=== PATIENT | male | born 1975 ===

== ENCOUNTER 2017-06-25 22:53 | Emergency (ER) | payer SELFPAY ==
[2017-06-25 22:56] VITALS: BP 153/97; PULSE 119; RESP 16; TEMP 98.2; O2SAT 100
[2017-06-25] MEDS ORDERED: Lidocaine 1% Inj (20ml) IJ STA (23:26)
--- NOTE | 2017-06-25 23:31 | ED PDOC ---
HPI: General Adult Time Seen by Provider: 06/25/17 23:11 Chief Complaint (Nursing): Abnormal Skin Integrity History Per: Patient Additional Complaint(s): Pt. states 30 mins [employer] a machete accidentally fell on his R wrist causing a laceration. Denies numbness, tingling, other injury. Admits to drinking alcohol tonight. Past Medical History Reviewed: Historical Data, Nursing Documentation, Vital Signs Vital Signs: Last Vital Signs Temp 98.2 F 06/25/17 22:54 Pulse 119 H 06/25/17 22:54 Resp 16 06/25/17 22:54 BP 153/97 H 06/25/17 22:54 Pulse Ox 100 06/26/17 03:15 - Family History Family History: States: No Known Family Hx - Immunization History Hx Tetanus Toxoid Vaccination: Yes ("3 years ago") - Allergies Allergies/Adverse Reactions: Allergies Allergy/AdvReac Type Severity Reaction Status Date / Time No Known Allergies Allergy Verified 06/25/17 22:54 Review of Systems ROS Statement: Except As Marked, All Systems Reviewed And Found Negative Physical Exam - Physical Exam Appears: Positive for: Well, Non-toxic, No Acute Distress Head Exam: Positive for: ATRAUMATIC, NORMAL INSPECTION, NORMOCEPHALIC Skin: Positive for: Normal Color, Warm. Negative for: Rash Eye Exam: Positive for: Normal appearance Pulses-Radial (L): 2+ Pulses-Radial (R): 2+ Extremity: Positive for: Normal ROM (actively of R wrist and all fingers on R hand), Capillary Refill (< 2 seconds of finger on R hand), Other (R wrist with 3 inch superficial on volar surface extending to dorsal surface without active bleeding or deep structure visualized) Neurologic/Psych: Positive for: Alert, Oriented, Gait (steady unassisted), Other (no slurred speech) - ECG O2 Sat by Pulse Oximetry: 100 - Progress ED Course And Treament: Repeat HR: 120 as per RN. Pt. denies chest pain, SOB, palpitations. Informed that EKG will be needed to evaluate tachycardia. EKG ordered. 0120 Pt. not found in room. Pt. did not get EKG done. Left before treatment complete. Procedures - Time-Out Type of Procedure: Laceration repair Site of Procedure: R wrist Correct Patient (with visual ID + MR# on ID Band): Yes Correct Procedure: Yes Correct Site Marked: Yes PA/Tech: Chas[place] - Splinting Pre-Made Type: velcro Splint: volar Pre-Proc Neuro Vasc Exam: normal Post-Proc Neuro Vasc Exam: normal - Laceration/Wound Repair Laceration repair Wound Length (cm): 7.5 Wound's Depth, Shape: superficial, linear Wound Explored: clean Irrigated w/ Saline (ccs): 500 Betadine Prep?: Yes Anesthesia: 1% Lidocaine Volume Anesthetic (ccs): 4 Wound Repaired With: Sutures Suture Size/Type: 4:0, proline Number of Sutures: 9 Layer Closure?: No Wound Complexity: Intermediate Sterile Dressing Applied?: Yes Splint Applied?: Yes Progress: 3 vertical mattress sutures 6 simple interrupted sutures Disposition - Clinical Impression Clinical Impression: Wrist laceration, Tachycardia - Patient ED Disposition Is Patient to be Admitted: No - Disposition Disposition: Eloped Disposition Time: 01:20 Condition: UNKNOWN Print Language: KOSOVAN
[2017-06-25] MEDS ORDERED: Lidocaine 1% Inj (20ml) ONE (23:35)
[2017-06-25] MEDS ORDERED: Povidone Iodine Oint 10% Foilpak UD ONE (23:37)
== END 2017-06-26 01:33 | disposition left against medical advice (07) ==
LOC: H.ER 22:53
DX: S61.512A Laceration without foreign body of left wrist, initial encounter (principal); W26.0XXA Contact with knife, initial encounter; Y92.89 Other specified places as the place of occurrence of the external cause; R00.0 Tachycardia, unspecified

== ENCOUNTER 2017-07-11 13:15 | Emergency (ER) | payer OTHER ==
[2017-07-11 13:23] VITALS: BP 124/70; PULSE 70; RESP 20; TEMP 98; O2SAT 98
--- NOTE | 2017-07-11 13:38 | ED PDOC ---
HPI: Wound Care - HPI Time Seen by Provider: 07/11/17 13:23 Chief Complaint (Nursing): Suture/Staple Removal Chief Complaint (Provider): suture/staple removal History Per: Patient Exam Limitations: no limitations Onset/Duration Of Symptoms: Days (06/24/17) Location Of Injury: Right: Forearm (wrist) Additional Complaint(s): 42 year old male presents to the ED stating on June 24, 2017, he had sutures placed on his right wrist. He is happy with how they come out. Currently, denies any other complaints in the ED. Also denies any fever or pain. PMD: No Family Provider Past Medical History Reviewed: Historical Data, Nursing Documentation, Vital Signs Vital Signs: Last Vital Signs Temp 98 F 07/11/17 13:21 Pulse 70 07/11/17 13:21 Resp 20 07/11/17 13:21 BP 124/70 07/11/17 13:21 Pulse Ox 98 07/11/17 13:21 - Medical History PMH: No Chronic Diseases - Surgical History Surgical History: No Surg Hx - Family History Family History: States: Unknown Family Hx - Immunization History Hx Tetanus Toxoid Vaccination: Yes ("3 years ago") - Allergies Allergies/Adverse Reactions: Allergies Allergy/AdvReac Type Severity Reaction Status Date / Time No Known Allergies Allergy Verified 07/11/17 13:23 Review of Systems ROS Statement: Except As Marked, All Systems Reviewed And Found Negative Constitutional: Negative for: Fever, Other (pain) Skin: Positive for: Other (sutures on his right wrist) Psych: Negative for: Suicidal ideation (homicidal ideation) Physical Exam - Reviewed Nursing Documentation Reviewed: Yes Vital Signs Reviewed: Yes - Physical Exam Appears: Positive for: Non-toxic, No Acute Distress Head Exam: Positive for: ATRAUMATIC, NORMAL INSPECTION, NORMOCEPHALIC Skin: Positive for: Normal Color, Warm, Dry Extremity: Positive for: Normal ROM (full and actively; healed wound), Other ( right volar wrist multiple strucutre in place). Negative for: Tenderness ( erythema) - ECG O2 Sat by Pulse Oximetry: 98 (RA) Pulse Ox Interpretation: Normal - Progress ED Course And Treament: Removed by Anthony Estrada PA-C without difficulty. Applied Steri-Strips and dry Sterile dressing. Medical Decision Making Medical Decision Making: Time: 1323 Initial Plan: --Reevaluation Clinical Impression: Removal of suture Upon provider evaluation patient is medically stable, and requires no further treatment in the ED at this time. Patient will be discharged. Counseling was provided and all questions were answered regarding diagnosis and need for follow up with PMD. There is agreement to discharge plan. Return if symptoms persist or worsen. Scribe Attestation: Documented by Vinay Cobian, acting as a scribe for Anthony Estrada PA-C Provider Scribe Attestation: All medical record entries made by the Scribe were at my direction and personally dictated by me. I have reviewed the chart and agree that the record accurately reflects my personal performance of the history, physical exam, medical decision making, and the department course for this patient. I have also personally directed, reviewed, and agree with the discharge instructions and disposition. Disposition - Clinical Impression Clinical Impression: Encounter for removal of sutures - Patient ED Disposition Is Patient to be Admitted: No - Disposition Referrals: [facility] [Outside] Disposition: Routine/Home Disposition Time: 13:37 Condition: STABLE Instructions: Stitches Removal, Wound Care (DC) Forms: [employer] ([place]) Print Language: POLISH
== END 2017-07-11 13:51 | disposition home or self-care (01) ==
LOC: H.ER 13:15
DX: Z48.02 Encounter for removal of sutures (principal)